=== PATIENT | female | born 1955 | race Caucasian/White ===

== ENCOUNTER 2016-06-15 20:21 | Emergency (ER) | payer MEDICAID, OTHER ==
[~2016-06-15] VITALS: Ht 154.9 cm; Wt 68.0 kg
[~2016-06-15 20:21] MED LIST: [UNRECOGNIZED DRUG - REMARK]
[2016-06-15 21:28] LABS: BASOPHILS # (AUTO) 0.1 /CMM (0.0-0.2); BASOPHILS % (AUTO) 0.6 % (0.0-2.0); DIFF TOTAL % 100 %; EOSINOPHILS # (AUTO) 0.1 /CMM (0.0-0.7); EOSINOPHILS % (AUTO) 1.4 % (0.0-6.0); HEMATOCRIT 37 % (33-45); LYMPHOCYTES # (AUTO) 3.7 /CMM (0.8-4.8); LYMPHOCYTES % (AUTO) 40.3 % (20.0-44.0); MEAN CORPUSCULAR HEMOGLOBIN 31 PG (26.0-33.0); MEAN CORPUSCULAR HGB CONC 35 g/dl (31.0-36.0); MEAN CORPUSCULAR VOLUME 89 fL (82-100); MONOCYTES # (AUTO) 0.6 /CMM (0.1-1.30); MONOCYTES % (AUTO) 6.5 % (2.0-12.0); NEUTROPHILS # (AUTO) 4.6 /CMM (1.8-8.9); NEUTROPHILS % (AUTO) 51.2 % (43.0-81.0); PLATELET COUNT (AUTO) 169 /CMM (150-450); RED BLOOD CELL COUNT(AUTO) 4.18 MIL/uL (4.0-5.2); WHITE BLOOD COUNT (AUTO) 9.1 K/uL (4.3-11.0)
[2016-06-15] MEDS ORDERED: MAG HYDROX/AL HYDROX/SIMETH 30 ML UDC PO ONE (21:30)
[2016-06-15] MEDS ORDERED: LIDOCAINE VISCOUS 2% UD 15 ML UDC MM ONE (21:30)
[2016-06-15] MEDS ORDERED: ONDANSETRON HCL/PF 4 MG/2 ML VIAL IVP ONE (21:30)
[2016-06-15] MEDS ORDERED: MAG HYDROX/AL HYDROX/SIMETH 30 ML UDC ONE (21:33)
[2016-06-15] MEDS ORDERED: LIDOCAINE VISCOUS 2% UD 15 ML UDC ONE (21:33)
[2016-06-15] MEDS ORDERED: ONDANSETRON HCL/PF 4 MG/2 ML VIAL ONE (21:34)
[2016-06-15 21:40] LABS: CALCIUM, SERUM 8.6 mg/dL (8.5-10.1); CREATININE 0.9 mg/dL (0.6-1.3)
[2016-06-15 21:44] LABS: BILIRUBIN,TOTAL 0.3 mg/dL (0.2-1.0); TOTAL PROTEIN, SERUM 7.3 g/dL (6.4-8.2)
[2016-06-15 21:47] LABS: INDIRECT BILIRUBIN 0.3 mg/dL (0.0-1.1)
[2016-06-15 21:48] LABS: ADD UA MICROSCOPIC YES; KETONES,URINE Trace (NEGATIVE); LEUKOCYTE ESTERASE ,URINE Trace (NEGATIVE); PH,URINE 5.5 (5.0-8.0)
[2016-06-15 21:54] LABS: ADD URINE CULTURE NO; WBC,URINE 0-2 /HPF (0-3)
[2016-06-15 22:33] VITALS: BP 125/67
== END 2016-06-15 22:34 | disposition home or self-care (01) ==
LOC: ER 20:25
DX: R10.13 Epigastric pain (principal); R05 Cough; I10 Essential (primary) hypertension; J45.909 Unspecified asthma, uncomplicated; E11.9 Type 2 diabetes mellitus without complications; F32.9 Major depressive disorder, single episode, unspecified; C67.9 Malignant neoplasm of bladder, unspecified; F17.200 Nicotine dependence, unspecified, uncomplicated; Z88.6 Allergy status to analgesic agent
CPT/HCPCS: 36415; 71010-TC; 80048-TC; 80076-TC; 81000-TC; 83690-TC; 85025-TC; A4606; J2405; Z7610

== ENCOUNTER 2016-07-27 20:54 | Emergency (ER) | payer MEDICAID ==
[~2016-07-27] VITALS: Ht 157.5 cm; Wt 68.0 kg
--- NOTE | 2016-07-27 21:16 | NUR ---
to bed 3 ambulatory c/o cough and congestion x2 weeks, nausea today. pt aaox4 no acute distress noted, resp even and unlabored. place pt on cardiac monitoring, continuous pox, o2@2l/nc. pending er md souza.
--- NOTE | 2016-07-27 22:40 | NUR ---
Patient discharged to home in stable condition. Written and verbal after care instructions given. Patient verbalizes understanding of instruction. ambulatory with a steady gait noted. pt aaox4 no acute distress noted, resp even and unlabored.
[2016-07-27 22:41] VITALS: BP 132/72
== END 2016-07-27 22:41 | disposition home or self-care (01) ==
LOC: ER 20:57
DX: R05 Cough (principal); J45.909 Unspecified asthma, uncomplicated; F32.9 Major depressive disorder, single episode, unspecified; E11.9 Type 2 diabetes mellitus without complications; I10 Essential (primary) hypertension; F17.200 Nicotine dependence, unspecified, uncomplicated; Z85.51 Personal history of malignant neoplasm of bladder; Z88.5 Allergy status to narcotic agent
CPT/HCPCS: 71010-TC; A4606; Z7610

== ENCOUNTER 2017-09-25 10:40 | Emergency (ER) | payer MEDICAID, OTHER ==
[~2017-09-25] VITALS: Ht 157.5 cm; Wt 70.3 kg
--- NOTE | 2017-09-25 11:00 | NUR ---
C/O LEFT SIDED NECK PAIN, WOKE UP FROM THE PAIN LAST NIGHT. NO TRAUMA, NAD NOTED, VSS, RESP EVEN AND UNLABORED. PT WAS PUT ON MONITOR, WAITING FOR MD COOPER.
[2017-09-25] MEDS ORDERED: IV NS 0.9% 1,000 ML BAG IV ONE (11:30)
[2017-09-25] MEDS ORDERED: KETOROLAC TROMETHAMINE INJ 30 MG/ML VIAL IV ONE (11:30)
[2017-09-25] MEDS ORDERED: KETOROLAC TROMETHAMINE 15 MG/ML VIAL ONE (11:41)
[2017-09-25 11:45] LABS: BASOPHILS # (AUTO) 0.1 /CMM (0.0-0.2); BASOPHILS % (AUTO) 1.1 % (0.0-2.0); EOSINOPHILS % (AUTO) 1.7 % (0.0-6.0); HEMATOCRIT 40 % (33-45); HEMOGLOBIN 13.8 g/dL (11.5-14.8); LYMPHOCYTES # (AUTO) 2.7 /CMM (0.8-4.8); LYMPHOCYTES % (AUTO) 37.8 % (20.0-44.0); MEAN CORPUSCULAR HGB CONC 34 g/dl (31.0-36.0); MEAN CORPUSCULAR VOLUME 88 fL (82-100); MONOCYTES # (AUTO) 0.5 /CMM (0.1-1.30); MONOCYTES % (AUTO) 6.6 % (2.0-12.0); NEUTROPHILS # (AUTO) 3.8 /CMM (1.8-8.9); NEUTROPHILS % (AUTO) 52.8 % (43.0-81.0); PLATELET COUNT (AUTO) 219 /CMM (150-450); RDW COEFFICIENT OF VARIATION 12.3 (11.5-15.0); RED BLOOD CELL COUNT(AUTO) 4.54 MIL/uL (4.0-5.2); WHITE BLOOD COUNT (AUTO) 7.2 K/uL (4.3-11.0)
[2017-09-25 11:53] LABS: CALCIUM, SERUM 8.8 mg/dL (8.5-10.1); CREATININE 0.6 mg/dL (0.6-1.3)
[2017-09-25] MEDS ORDERED: IV NS 0.9% 500 ML IV ONE (12:23)
[2017-09-25] MEDS ORDERED: CT SWABBABLE VALVE TRANS SET 1 EA INFUS.SET MC ONE (12:23)
[2017-09-25] MEDS ORDERED: IOHEXOL-300 100 ML VIAL IV ONE (12:23)
--- NOTE | 2017-09-25 13:42 | NUR ---
Patient discharged to home in stable condition. Written and verbal after care instructions given. Patient verbalizes understanding of instruction.IV removed. Catheter intact and site benign. Pressure and 4x4 applied to site. No bleeding noted.
[2017-09-25 13:44] VITALS: BP 142/85
== END 2017-09-25 13:46 | disposition home or self-care (01) ==
LOC: ER 10:41
DX: R07.0 Pain in throat (principal); E11.9 Type 2 diabetes mellitus without complications; F32.9 Major depressive disorder, single episode, unspecified; I10 Essential (primary) hypertension; F17.200 Nicotine dependence, unspecified, uncomplicated; J45.909 Unspecified asthma, uncomplicated; Z85.51 Personal history of malignant neoplasm of bladder; Z88.5 Allergy status to narcotic agent
CPT/HCPCS: 36415; 70491; 80048; 85025; 99285; A4606; J7030; J7040; Q9967; Z7610; J1885

== ENCOUNTER 2018-08-26 19:09 | Emergency (ER) | payer MEDICAID, OTHER ==
[~2018-08-26] VITALS: Ht 154.9 cm; Wt 65.3 kg
[2018-08-26 19:33] VITALS: BP 159/83
--- NOTE | 2018-08-26 21:54 | NUR ---
PT LEFT WITHOUT RECEIVING DISCHARGE PAPERS
== END 2018-08-26 21:55 | disposition home or self-care (01) ==
LOC: ER 19:09
DX: R51 Headache (principal); I10 Essential (primary) hypertension; J45.909 Unspecified asthma, uncomplicated; E11.9 Type 2 diabetes mellitus without complications; F32.9 Major depressive disorder, single episode, unspecified; F17.200 Nicotine dependence, unspecified, uncomplicated; Z85.51 Personal history of malignant neoplasm of bladder
CPT/HCPCS: 70450-TC

== ENCOUNTER → 2019-02-14 | Emergency (ER) | payer MEDICAID ==
[~2019-02-14] VITALS: Ht 157.5 cm; Wt 74.8 kg
--- NOTE | 2019-02-14 00:40 | NUR ---
PT BIBRA WITH C/O HAVING ELEVATED BLOOD PRESSURE WITH SBP IN THE 200'S AND TOOK FAMILY MEMBER'S CLONIDINE. PT IS A/OX3. ON ROOM AIR, BREATHING EVEN AND UNLABORED. DENIES SOB, N/V, CP AT THIS TIME. CONNECTED TO PASTORAL ASSISTANT AND PULSE OX.
--- NOTE | 2019-02-14 01:49 | NUR ---
Patient discharged to home with family member in stable condition. Written and verbal after care instructions given. Patient verbalizes understanding of instruction.
[2019-02-14 01:56] VITALS: BP 151/80
== END | disposition home or self-care (01) ==
LOC: ER 00:21
DX: I10 Essential (primary) hypertension (principal); J45.909 Unspecified asthma, uncomplicated; E11.9 Type 2 diabetes mellitus without complications; F32.9 Major depressive disorder, single episode, unspecified; Z85.51 Personal history of malignant neoplasm of bladder; Z88.6 Allergy status to analgesic agent
CPT/HCPCS: 71045-TC